=== PATIENT | male | born 1990 | race Caucasian/White ===

== ENCOUNTER 2016-12-01 23:59 | Inpatient (IN) | payer SELFPAY ==
[~2016-12-01] VITALS: Ht 165.1 cm; Wt 52.9 kg
[2016-12-02] VITALS (27 sets, daily range): BP systolic 111–141; BP diastolic 40–84; PULSE 84–122; RESP 9–22; TEMP 98.7; Ht 165.1 cm; Wt 52.9 kg
[2016-12-02] MEDS ORDERED: SOD CHLORIDE 0.9% 1,000 ML IV STA (00:27)
[2016-12-02] MEDS ORDERED: morphine 4 MG/ML VIAL IV STA (00:27)
[2016-12-02] MEDS ORDERED: ONDANSETRON 4 MG INJ IV STA (00:27)
--- NOTE | 2016-12-02 00:42 | ERA ---
ER Documentation Chief Complaint Date/Time DATE: 12/02/16 TIME: 00:39 Chief Complaint c/o abd pain since a.m. (+) n/v x 5. HPI 36-year-old male with a chief complaint of abdominal pain 1 day. Patient's abdominal pain has been worsening and vomiting has followed multiple times in the past few hours. Has felt feverish but has not taken his fever. States that the most pain is in the right lower quadrant. Denies any other symptoms and describes no other associated manifestations. Nursing notes have been reviewed and are consistent with history given. ROS All systems reviewed and are negative except as per history of present illness. PMhx/Soc Medical and Surgical Hx: pt denies Medical Hx, pt denies Surgical Hx Hx Alcohol Use: No Hx Substance Use: No Hx Tobacco Use: No Smoking Status: Never smoker Physical Exam Vitals Vital Signs Date Time Temp Pulse Resp B/P Pulse Ox O2 Delivery O2 Flow Rate FiO2 12/02/16 00:04 98.7 84 18 113/67 98 Physical Exam Const: Will develop 26-year-old male in moderate distress Head: Atraumatic Eyes: Normal Conjunctiva ENT: Normal External Ears, Nose and Mouth. Neck: Full range of motion..~ No meningismus. Resp: Clear to auscultation bilaterally Cardio: Regular rate and rhythm, no murmurs Abd: Tender right lower quadrant at McBurney's point area. Positive Rovsing' s and psoas signs. Negative obturator sign. Negative Woody sign. No right upper quadrant tenderness or epigastric tenderness. Involuntary versus voluntary guarding. Soft and nondistended abdomen. Skin: No petechiae or rashes Back: No midline or flank tenderness Ext: No cyanosis, or edema Neur: Awake and alert Psych: Normal Mood and Affect Result Diagram: 12/02/16 0035 12/02/16 0035 Results 24 hrs Laboratory Tests Test 12/02/16 00:35 White Blood Count 14.010^3/ul Red Blood Count 5.8010^6/ul Hemoglobin 17.4g/dl Hematocrit 48.9% Mean Corpuscular Volume 84.3fl Mean Corpuscular Hemoglobin 30.0pg Mean Corpuscular Hemoglobin Concent 35.6g/dl Red Cell Distribution Width 11.9% Platelet Count 49340^3/UL Mean Platelet Volume 9.2fl Neutrophils % 84.2% Lymphocytes % 9.7% Monocytes % 3.6% Eosinophils % 1.3% Basophils % 0.8% Nucleated Red Blood Cells % 0.0/100WBC Neutrophils # 11.810^3/ul Lymphocytes # 1.410^3/ul Monocytes # 0.510^3/ul Eosinophils # 0.210^3/ul Basophils # 0.110^3/ul Nucleated Red Blood Cells # 0.010^3/ul Prothrombin Time 12.5Sec Prothrombin Time Ratio 1.0 INR International Normalized Ratio 0.93 Activated Partial Thromboplast Time 22.7Sec Urine Color COLLEEN Urine Clarity SLIGHTLY CLOUDY Urine pH 6.0 Urine Specific Telferner 1.030 Urine Ketones TRACEmg/dL Urine Nitrite NEGATIVEmg/dL Urine Bilirubin NEGATIVEmg/dL Urine Urobilinogen 1+mg/dL Urine Leukocyte Esterase NEGATIVELeu/ul Urine Microscopic RBC 7/HPF Urine Microscopic WBC 1/HPF Urine Bacteria FEW/HPF Urine Mucus MANY/HPF Urine Hemoglobin NEGATIVEmg/dL Urine Glucose NEGATIVEmg/dL Urine Total Protein 3+mg/dl Sodium Level 139mmol/L Potassium Level 3.6mmol/L Chloride Level 101mmol/L Carbon Dioxide Level 27mmol/L Anion Gap 15 Blood Urea Nitrogen 10mg/dl Creatinine 0.70mg/dl Glucose Level 147mg/dl Calcium Level 10.1mg/dl Total Bilirubin 0.5mg/dl Direct Bilirubin 0.00mg/dl Indirect Bilirubin 0.5mg/dl Aspartate Amino Transf (AST/SGOT) 24IU/L Alanine Aminotransferase (ALT/SGPT) 35IU/L Alkaline Phosphatase 128IU/L Total Protein 8.1g/dl Albumin 4.7g/dl Globulin 3.40g/dl Albumin/Globulin Ratio 1.38 Lipase 51U/L Current Medications Medications (Trade) Dose Ordered Sig/Cesar Route PRN Reason Start Time Stop Time Status Last Admin Dose Admin Sodium Chloride (NS) 1,000 ml @ 1,000 mls/hr Q1H STAT IV 12/02/16 00:27 12/02/16 01:26 DC 12/02/16 00:40 Morphine Sulfate (morphine) 4 mg ONCE STAT IV 12/02/16 00:27 12/02/16 00:29 DC 12/02/16 00:39 Ondansetron HCl 4 mg 4 mg ONCE STAT IV 12/02/16 00:27 12/02/16 00:30 DC 12/02/16 00:39 Piperacillin Sod/ Tazobactam Sod 100 ml @ 200 mls/hr ONCE ONCE IVPB 12/02/16 02:00 12/02/16 02:29 Sodium Chloride (NS) 1,000 ml @ 1,000 mls/hr Q1H ONCE IV 12/02/16 02:00 12/02/16 02:59 Procedures/MDM Patient was evaluated and worked up for right lower quadrant abdominal discomfort as described in history and physical examination. Patient was given 4 of morphine IV, Zofran 4 mg IV, and 1000 mL of normal saline with adequate relief of symptoms. Workup included the following: CBC, CMP, lipase, urinalysis. Was contacted by the radiologist before the labs came back. Radiologist said that there is an enlarged appendix. I presented the case my attending Dr. Fortune will be taken over the case at this point. Patient is currently stable, And at this time I will suspicion for testicular torsion, hernia, mechanical obstruction, AAA, prostatitis, or epididymitis.I have spoken to the family members who have verbally acknowledged that they understand and agree to his current treatment plan and status. Departure Diagnosis: Primary Impression: Appendicitis Qualified Code: K35.80 - Acute appendicitis, unspecified acute appendicitis type Additional Impression: Abdominal pain Qualified Code: R10.31 - Right lower quadrant abdominal pain Condition: Stable Additional Instructions: Being transferred to the care of KURTIS Lyles PA-C Dec 02, 2016 00:42
[2016-12-02 00:56] LABS: BASOPHIL # 0.1 10^3/ul (0.0-0.1); BASOPHILS % 0.8 % (0.0-2.0); EOSINOPHILS # 0.2 10^3/ul (0.0-0.5); EOSINOPHILS % 1.3 % (0.0-7.0); HEMATOCRIT 48.9 % (42.0-52.0); HEMOGLOBIN 17.4 g/dl (14.0-18.0); LYMPHOCYTES # 1.4 10^3/ul (0.8-2.9); LYMPHOCYTES % 9.7 % (15.0-51.0); MEAN CORPUSCULAR HGB CONC 35.6 g/dl (32.0-37.0); MEAN CORPUSCULAR VOLUME 84.3 fl (82.0-101.0); MEAN PLATELET VOLUME 9.2 fl (7.4-10.4); MONOCYTE # 0.5 10^3/ul (0.3-0.9); MONOCYTES % 3.6 % (0.0-11.0); NEUTROPHIL # 11.8 10^3/ul (1.6-7.5); NEUTROPHILS % 84.2 % (39.0-77.0); PLATELET COUNT 450 10^3/UL (140-415); RED CELL DISTRIBUTION WIDTH 11.9 % (11.5-14.5)
[2016-12-02 01:20] LABS: ALBUMIN 4.7 g/dl (3.3-4.9); ALBUMIN/GLOBULIN RATIO 1.38; BILIRUBIN,INDIRECT 0.5 mg/dl (0-1.1); BILIRUBIN,TOTAL 0.5 mg/dl (0.2-1.3); CALCIUM 10.1 mg/dl (8.4-10.2); CREATININE 0.7 mg/dl (0.61-1.24); POTASSIUM 3.6 mmol/L (3.5-5.1); TOTAL PROTEIN 8.1 g/dl (6.1-8.1)
--- NOTE | 2016-12-02 01:36 | RADRPT ---
PROCEDURE: CT Abdomen and Pelvis without contrast. CLINICAL INDICATION: Pain. TECHNIQUE: CT scan of the abdomen and pelvis was performed on a multidetector slice CT scanner. No intravenous contrast material was utilized. Sagittal and coronal reformatted images were obtained fr om the axial source images. Images were reviewed on a high-resolution PACS workstation. Exam CTDlvol = 4.3 mGy and DLP = 241 Gy-cm. One of the following 3 dose reduction techniques were used: Automate d exposure control; adjustment of the mA and/or kV according to patient size; or use of iterative re construction technique. COMPARISON: None. FINDINGS: There is no obstruction or ileus. The appendix is is enlarged 11 mm with minimal surrounding infilt ration.. There is no evidence for diverticulitis. There is no free fluid. There is no free gas. The liver is overall normal in size. No intrahepatic lesions are identified. The gallbladder is norm al in appearance. There is no definite biliary ductal dilation. Pancreas is normal in appearance. Th e spleen is unremarkable.. There are no adrenal masses. The aorta is normal caliber. Kidneys are normal in appearance without hydronephrosis, mass or calculus. There is no perinephric c ollection. Ureters are of normal caliber and without evidence for an obstructing calculus. The urin soila bladder is contracted.. Limited evaluation of the lung bases is unremarkable. The bones are unremarkable. IMPRESSION: Acute appendicitis. Findings reported to PA. Shahid on 12/02/2016 1:31:16 AM. RPTAT: HMVK .Navi Menendez MD, MD Date Time Electronically viewed and signed by .Navi Menendez MD, MD on 12/02/2016 01:35 .K/
[2016-12-02 01:38] LABS: INR 0.93; PROTIME 12.5 Sec (12.2-14.2)
[2016-12-02 01:39] LABS: PARTIAL THROMBOPLASTIN TIME 22.7 Sec (25.0-35.0)
[2016-12-02 01:41] LABS: ADD UMIC YES; UR ASCORBIC ACID NEGATIVE (NEGATIVE); UR BACTERIA FEW /HPF (NONE SEEN); UR BILIRUBIN (Dip) NEGATIVE (NEGATIVE); UR BLOOD (Dip) NEGATIVE (NEGATIVE); UR CLARITY SLIGHTLY CLOUDY (CLEAR); UR COLOR AMBER (YELLOW); UR GLUCOSE (Dip) NEGATIVE (NEGATIVE); UR KETONES (Dip) TRACE mg/dL (NEGATIVE); UR LEUKOCYTE ESTERASE (Dip) NEGATIVE Leu/ul (NEGATIVE); UR MUCUS MANY /HPF (NONE SEEN); UR NITRITE (Dip) NEGATIVE (NEGATIVE); UR RBC 7 /HPF (0-5); UR TOTAL PROTEIN (Dip) 3+ mg/dl (NEGATIVE); UR UROBILINOGEN (Dip) 1+ mg/dL (NEGATIVE)
[2016-12-02] MEDS ORDERED: PIPER-TAZO 3.375 GM IV (PMX) 100 ML IVPB ONE (02:00)
[2016-12-02] MEDS ORDERED: SOD CHLORIDE 0.9% 1,000 ML IV ONE (02:00)
--- NOTE | 2016-12-02 02:11 | RADRPT ---
PROCEDURE: Chest. CLINICAL INDICATION: Preop evaluation. TECHNIQUE: Single frontal view of the chest was obtained. COMPARISON: None. FINDINGS: The cardiac silhouette is magnified. The aortic arch is unremarkable. There is no focal consolidat ion, vascular congestion or pleural effusion. There is no pneumothorax. IMPRESSION: No evidence for active cardiopulmonary disease. .Braulio Quispe MD, MD Date Time Electronically viewed and signed by .Braulio Quispe MD, on 12/02/2016 02:11 .T/
--- NOTE | 2016-12-02 02:23 | EN ---
Date/Time of Note Date/Time of Note DATE: 12/02/16 TIME: 02:23 ER Progress Note Chief complaint: Abdominal pain History of present illness: The patient is a 23-year-old male, was initially seen in ED2,presenting with acute abdominal pain that began about 4 PM, associated with vomiting of mostly mucus. He denies fever, chills, neck pain, chest pain or dyspnea, dysuria, diarrhea. He smokes and drinks socially Past medical/surgical history: None Const: No acute distress. Head: Atraumatic. Eyes: Normal Conjunctiva. ENT: Normal External Ears, Nose and Mouth. Neck: Full range of motion. No meningismus. Resp: Clear to auscultation bilaterally. Cardio: Regular rate and rhythm. Abd: Soft, non distended, normal bowel sounds, Localized right lower quadrant tenderness, no rigidity, rebound, CVA tenderness Skin: No petechiae or rashes. Back: No midline or flank tenderness. Ext: No cyanosis, or edema. Neur: Awake and alert. No focal deficit Psych: Normal Mood and Affect. EKG: Read by emergency physician Rate/Rhythm: Normal Sinus Rhythm 80 beats/min QRS, ST, T-waves: No ST elevation, no T inversion, Incomplete right bundle branch block, nonspecific T abnormality Impression: Abnormal EKG [place] [id number] Rad[facility] Main Line: [phone] DIAGNOSTIC IMAGING REPORT Patient: RUTHANN CHIRINOS : 1990 Age: 26 Sex: M MR #: [id number] DOS: 12/02/16 0140 Ordering MD: NAVI DUGGAN MD Location: E/R Room/Bed: PROCEDURE: Chest. CLINICAL INDICATION: Preop evaluation. TECHNIQUE: Single frontal view of the chest was obtained. COMPARISON: None. FINDINGS: The cardiac silhouette is magnified. The aortic arch is unremarkable. There is no focal consolidation, vascular congestion or pleural effusion. There is no pneumothorax. IMPRESSION: No evidence for active cardiopulmonary disease. .Braulio Quispe MD, Date Time Electronically viewed and signed by .Braulio Quispe MD, on 12/02/2016 02:11 .T/ CC: NAVI DUGGAN MD [place] [id number] Radiology Main Line: [phone] DIAGNOSTIC IMAGING REPORT Patient: RUTHANN CHIRINOS : 1990 Age: 26 Sex: M MR #: [id number] DOS: 12/02/16 0027 Ordering MD: NAVI SHAHID PA-C Location: [facility]TE Room/Bed: PROCEDURE: CT Abdomen and Pelvis without contrast. CLINICAL INDICATION: Pain. TECHNIQUE: CT scan of the abdomen and pelvis was performed on a multidetector slice CT scanner. No intravenous contrast material was utilized. Sagittal and coronal reformatted images were obtained from the axial source images. Images were reviewed on a high-resolution PACS workstation. Exam CTDlvol = 4.3 mGy and DLP = 241 Gy-cm. One of the following 3 dose reduction techniques were used: Automated exposure control; adjustment of the mA and/or kV according to patient size; or use of iterative reconstruction technique. COMPARISON: None. FINDINGS: There is no obstruction or ileus. The appendix is is enlarged 11 mm with minimal surrounding infiltration.. There is no evidence for diverticulitis. There is no free fluid. There is no free gas. The liver is overall normal in size. No intrahepatic lesions are identified. The gallbladder is normal in appearance. There is no definite biliary ductal dilation. Pancreas is normal in appearance. The spleen is unremarkable.. There are no adrenal masses. The aorta is normal caliber. Kidneys are normal in appearance without hydronephrosis, mass or calculus. There is no perinephric collection. Ureters are of normal caliber and without evidence for an obstructing calculus. The urinary bladder is contracted.. Limited evaluation of the lung bases is unremarkable. The bones are unremarkable. IMPRESSION: Acute appendicitis. Findings reported to PA. Shahid on 12/02/2016 1:31:16 AM. RPTAT: HMVK .Navi Menendez MD, Date Time Electronically viewed and signed by .Navi Menendez MD, on 12/02/2016 01:35 .K/ CC: NAVI SHAHID PA-C MEDICAL MAKING DECISION: The patient is a 26-year-old male, presenting with acute appendicitis. He was treated with 2 L normal saline for clinical dehydration, morphine 4 mg IV for pain, Zofran 4 mm for nausea, Zosyn IV for acute appendicitis with good response. The differential diagnoses considered include but are not limited to cholelithiasis, cholecystitis, cystitis, pancreatitis, hepatitis, gastritis, peptic ulcer disease, gastric ulcer, appendicitis, diverticulitis, cholangitis, choledocholithiasis, partial small bowel obstruction. Consultation: I discussed the patient with the on-call general surgeon Dr. Gaffney at 1:50 AM, who was made aware of the lab, the treatment, the patient condition. He accepted the consult Diagnostic impression: Acute appendicitis Disposition: I discussed the findings with the patient. I discussed the patient with the on-call hospitalist Dr. Alfredo at 2 AM who was made aware of the lab, the treatment, the patient condition and my discussion with the general surgeon. The patient is admitted to NAVI Benson MD Dec 02, 2016 02:23
[2016-12-02] MEDS ORDERED: SOD CHLORIDE 0.9% 1,000 ML IV SCH (03:27)
--- NOTE | 2016-12-02 03:27 | HP ---
Date/Time of Note Date/Time of Note DATE: 12/02/16 TIME: 03:24 Assessment/Plan VTE Prophylaxis VTE Prophylaxis Intervention: SCD's Lines/Catheters IV [facility] Saline Lock Assessment/Plan Chief Complaint/Hosp Course This is a 26 year old male being admitted to the [facility] floor for: #1 acute appendicitis: keep npo, iv fluid hydration with normal saline, zosyn iv , iv morphine for pain, zofran for nausea. 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 #2 Dvt and gi prophylaxis: scds, famotidine Further treatment strategy will be implemented as per the clinical course Problems: HPI/ROS Admit Date/Time Admit Date/Time Hx of Present Illness cc: abdominal pain x 1 day This is a 36-year-old male with a chief complaint of abdominal pain 1 day. Patient's abdominal pain has been worsening and vomiting has followed multiple times in the past few hours. Has felt feverish but has not taken his fever. States that the most pain is in the right lower quadrant. Denies any other symptoms and describes no other associated manifestations. Nursing notes have been reviewed and are consistent with history given. allergies: nkda medsL none ROS Const: As per HPI Eyes : No pain discharge or redness or change in visual acuity ENT: No pain, sore throat, congestion, congestion, dysphagia or discharge Respiratory: No shortness of breath, cough, sputum, wheezing, or pleuritic pain Cardiovascular: No chest pain, palpitation, PND, or edema GI : as per HPI Genitourinary: No dysuria, hematuria, flank pain , discharge or CVA tenderness Musculoskeletal: No joint pain, back pain, neck pain, restricted range of motion in neck or joints Skin: No rash, bruising or hives Neuro: No headache, dizziness, syncope, seizure, focal weakness Endocrine: No polyuria, polydipsia, temperature intolerance Psych: No hallucination, depression, anxiety or suicidal ideation PMH/Family/Social Past Medical History Medical History: no pertinent history Past Surgical History Past Surgical Hx: no surgical history Family History Significant Family History: no pertinent family hx Social History Alcohol Use: occasionally Smoking Status: Never smoker Drug Use: none Exam/Review of Systems Vital Signs Vitals Vital Signs Date Time Temp Pulse Resp B/P Pulse Ox O2 Delivery O2 Flow Rate FiO2 12/02/16 02:17 85 22 133/84 98 Room Air 12/02/16 00:04 98.7 Exam Exam General: Patient is well-developed well-nourished The patient is alert oriented -3 lying comfortably in bed. HEENT: Atraumatic, normocephalic. The pupils are equal, round and reactive. Extraocular motor are intact Neck: Supple with full range of motion. No rigidity or meningismus Chest: Nontender Lungs: Clear to auscultation bilaterally no crackles rales or wheezing Heart: Normal S1-S2, Regular rhythm and rate. No murmur, S3, or S4 Abdomen: Right lower quadrant tenderness to palpation, nondistended, normal bowel sounds Extremities: Normal to inspection, no edema no cyanosis Neurologic: Normal mental status, speech normal, cranial nerves II through XII are intact, motor and sensory are intact, no focal weakness Additional Comments PROCEDURE: CT Abdomen and Pelvis without contrast. CLINICAL INDICATION: Pain. TECHNIQUE: CT scan of the abdomen and pelvis was performed on a multidetector slice CT scanner. No intravenous contrast material was utilized. Sagittal and coronal reformatted images were obtained from the axial source images. Images were reviewed on a high-resolution PACS workstation. Exam CTDlvol = 4.3 mGy and DLP = 241 Gy-cm. One of the following 3 dose reduction techniques were used: Automated exposure control; adjustment of the mA and/or kV according to patient size; or use of iterative reconstruction technique. COMPARISON: None. FINDINGS: There is no obstruction or ileus. The appendix is is enlarged 11 mm with minimal surrounding infiltration.. There is no evidence for diverticulitis. There is no free fluid. There is no free gas. The liver is overall normal in size. No intrahepatic lesions are identified. The gallbladder is normal in appearance. There is no definite biliary ductal dilation. Pancreas is normal in appearance. The spleen is unremarkable.. There are no adrenal masses. The aorta is normal caliber. Kidneys are normal in appearance without hydronephrosis, mass or calculus. There is no perinephric collection. Ureters are of normal caliber and without evidence for an obstructing calculus. The urinary bladder is contracted.. Limited evaluation of the lung bases is unremarkable. The bones are unremarkable. IMPRESSION: Acute appendicitis. Findings reported to PA. Shahid on 12/02/2016 1:31:16 AM. RPTAT: HMVK .Kurtis Menendez MD, Date Time Electronically viewed and signed by .Kurtis Menendez MD, MD on 12/02/2016 01:35 .K/ CC: KURTIS SHAHID PA-C PROCEDURE: Chest. CLINICAL INDICATION: Preop evaluation. TECHNIQUE: Single frontal view of the chest was obtained. COMPARISON: None. FINDINGS: The cardiac silhouette is magnified. The aortic arch is unremarkable. There is no focal consolidation, vascular congestion or pleural effusion. There is no pneumothorax. IMPRESSION: No evidence for active cardiopulmonary disease. .Braulio Quispe MD, MD Date Time Electronically viewed and signed by .Braulio Quispe MD, on 12/02/2016 02:11 .T/ CC: KURTIS DUGGAN MD Labs Result Diagram: 12/02/16 0035 12/02/16 0035 TYRELL CORONADO Dec 02, 2016 03:27
[2016-12-02] MEDS ORDERED: ACETAMINOPHEN 325 MG TAB PO PRN (03:30)
[2016-12-02] MEDS ORDERED: NACL 0.9% 3 ML SYG IV SCH (03:30)
[2016-12-02] MEDS ORDERED: morphine 2 MG INJ IV PRN (03:30)
[2016-12-02] MEDS: FAMOTIDINE 20 MG INJ IV SCH ×2 (04:08→13:00)
[2016-12-02] MEDS: ONDANSETRON 4 MG INJ IV PRN ×2 (06:30→19:56)
[2016-12-02] MEDS: PIPER-TAZO 3.375 GM IV (PMX) 100 ML IVPB SCH ×2 (07:57→14:00)
[2016-12-02] MEDS ORDERED: PROPOFOL 20 ML ONE (12:36)
[2016-12-02] MEDS ORDERED: LIDOCAINE 2% (SDV) 5 ML INJ ONE (12:36)
[2016-12-02] MEDS ORDERED: ROCURONIUM 50 MG INJ ONE (12:36)
[2016-12-02] MEDS ORDERED: ONDANSETRON 4 MG INJ ONE (12:37)
[2016-12-02] MEDS ORDERED: FENTAnyl 50 MCG/ML VIAL ONE (12:37)
[2016-12-02] MEDS ORDERED: MIDAZOLAM 1 MG/ML 2 ML INJ ONE (12:37)
[2016-12-02] MEDS ORDERED: DEXAMETHASONE 4 MG/ML 1 ML INJ ONE (12:37)
--- NOTE | 2016-12-02 13:05 | CONS ---
Date/Time of Note Date/Time of Note DATE: 12/02/16 TIME: 13:05 Assessment/Plan Assessment/Plan Additional Assessment/Plan [facility] IN[facility]IENT CONSULTATION NOTE DATE OF SERVICE: 12/02/2016 PLACE OF SERVICE: [facility], sixth floor ASSESSMENT AND PLAN: A very-pleasant 26-year-old gentleman who is otherwise seemingly healthy, presenting with acute appendicitis. I recommended and consented the patient and family for laparoscopic, possible open appendectomy. With above assessment, I've recommended the followin. To the operating room for above Thank you very much for having me involved in the care of this very pleasant patient and I'm certain his wonderful family. If you have any questions, please feel free to contact me at [phone]. Nature of presenting problem: Moderate severity Please note that, given the limited number of diagnoses or management options, the moderate amount and/or complexity of data needed to be reviewed, and moderate risk of complications and/or morbidity or mortality, this qualifies as moderate complexity type of decision-making. Disclaimers: 1. Inadvertent spelling and grammatical errors are likely due to electronic health record (EHR)/dictation software use and do not reflect on the quality of delivered patient care. 2. The electronic timestamp recorded on this note does not necessarily reflect the actual date and time of the visit. 3. Portions of this note are created through electronic templates and computer algorithms that may bring in information either from the system or from other physicians and providers that are outside of my control and may not be always accurate. In general (but not always) this happens either in the beginning or at the end of the note. My portions of the gathered data are generally dictated in 1 continuous block of text and entered into one field in the EHR. 4. There may be other unanticipated errors in the note that are outside of my control. I can only attest to the portions of the note that I have created. Updated clinical summary: Very pleasant and otherwise healthy 26-year-old gentleman, presenting with acute appendicitis to [facility] through the emergency department on 12/02/2016. Comorbidities: None CONSULTATION REQUESTED BY: Asia Alfredo MD HISTORY OF PRESENT ILLNESS: Patient is a very pleasant and otherwise healthy 26- year-old gentleman, presenting with acute appendicitis to [facility] through the emergency department on 12/02/2016. Patient reported having pain since yesterday. He started having nausea but no sig vomiting. [place] like he was "about to ". No change in bowel or bladder habits including no diarrhea or constipation or blood in the stool. He describes the pain as right lower quadrant without radiation. Severe at its worse. No alleviating or exacerbating factors. No prior operations in the past. No prior similar symptoms in the past. No other major complaints. Pain improved with pain medications. Workup was positive for white blood cell count elevation (14) as well as CT findings. ALLERGIES: NKDA MEDICATIONS Documented in the electronic records and reviewed by me. Please see the electronic records for details, as well as details for inpatient medications which were also reviewed by me. SOCIAL HISTORY: The patient lives with family.-Tob;-ETOH;-IVDU. 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 FAMILY HISTORY: There are no significant medical, surgical or oncologic issues in the family as reported by the patient or reflected in the chart. REVIEW OF SYSTEMS: Other than mentioned above, there were no other pertinent positives or pertinent negatives in an otherwise complete 14 point review of systems. PHYSICAL EXAMINATION GENERAL: The patient appears to be a very pleasant gentleman of descent lying in bed, appearing stated age, and otherwise in no acute distress. BMI: 19.4 VITAL SIGNS: AVSS (please also see auto important data if available as well as the electronic records) HEENT: Normocephalic and atraumatic. Extraocular muscles and hearing are grossly intact bilaterally and symmetrically. Sclerae are nonicteric. Oral cavity is clear; oral mucosa appear to be pink and moist. Dentition: fair. NECK: Supple. There is no lymphadenopathy or JVD. There is no submental, submandibular or supraclavicular lymphadenopathy. CHEST: Rises symmetrically with each breath; patient is breathing comfortably. There are no audible wheezes, rales or rhonchi on the gross exam. HEART: Pulse is regular and palpable on the right wrist. Capillary refill is normal. Carotid pulses are palpable bilaterally and symmetrically in the neck. EXTREMITIES: Lower extremities contain no pitting edema around the ankles bilaterally and symmetrically. ABDOMEN: Abdomen is soft, mild to moderately tender to palpation in the RLQ and nondistended. No evidence of ascites, organomegaly, caput medusae, engorged subcutaneous veins, or other abnormalities. There are no peritoneal signs or guarding. SKIN: Appears to be pink and feels warm to touch. NEUROLOGIC: Awake, alert, and follows commands appropriately. LABORATORY DATA: See below IMAGING: See electronic chart. Please note that I've personally reviewed all pertinent available images and I agree in general with their overall reported findings. Consultation Date/Type/Reason Admit Date/Time Past Medical History Medical History: no pertinent history Past Surgical History Past Surgical Hx: no surgical history Social History Alcohol Use: occasionally Smoking Status: Light tobacco smoker Drug Use: none Exam/Review of Systems Vital Signs Vitals Vital Signs Date Time Temp Pulse Resp B/P Pulse Ox O2 Delivery O2 Flow Rate FiO2 12/02/16 12:23 98.7 12/02/16 07:59 82 18 126/74 98 12/02/16 06:20 Room Air Results Result Diagram: 12/02/16 0035 12/02/16 0035 Results 24 hrs Laboratory Tests Test 12/02/16 00:35 White Blood Count 14.0 H Red Blood Count 5.80 Hemoglobin 17.4 Hematocrit 48.9 Mean Corpuscular Volume 84.3 Mean Corpuscular Hemoglobin 30.0 Mean Corpuscular Hemoglobin Concent 35.6 Red Cell Distribution Width 11.9 Platelet Count 450 H Mean Platelet Volume 9.2 Neutrophils % 84.2 H Lymphocytes % 9.7 L Monocytes % 3.6 Eosinophils % 1.3 Basophils % 0.8 Nucleated Red Blood Cells % 0.0 Neutrophils # 11.8 H Lymphocytes # 1.4 Monocytes # 0.5 Eosinophils # 0.2 Basophils # 0.1 Nucleated Red Blood Cells # 0.0 Prothrombin Time 12.5 Prothrombin Time Ratio 1.0 INR International Normalized Ratio 0.93 Activated Partial Thromboplast Time 22.7 L Urine Color COLLEEN Urine Clarity SLIGHTLY CLOUDY A Urine pH 6.0 Urine Specific Rheems 1.030 Urine Ketones TRACE A Urine Nitrite NEGATIVE Urine Bilirubin NEGATIVE Urine Urobilinogen 1+ H Urine Leukocyte Esterase NEGATIVE Urine Microscopic RBC 7 H Urine Microscopic WBC 1 Urine Bacteria FEW A Urine Mucus MANY A Urine Hemoglobin NEGATIVE Urine Glucose NEGATIVE Urine Total Protein 3+ H Sodium Level 139 Potassium Level 3.6 Chloride Level 101 Carbon Dioxide Level 27 Anion Gap 15 Blood Urea Nitrogen 10 Creatinine 0.70 Glucose Level 147 Calcium Level 10.1 Total Bilirubin 0.5 Direct Bilirubin 0.00 Indirect Bilirubin 0.5 Aspartate Amino Transf (AST/SGOT) 24 Alanine Aminotransferase (ALT/SGPT) 35 Alkaline Phosphatase 128 H Total Protein 8.1 Albumin 4.7 Globulin 3.40 H Albumin/Globulin Ratio 1.38 Lipase 51 Medications Medications Current Medications Piperacillin Sod/ Tazobactam Sod 100 ml @ 200 mls/hr Q8 IVPB Last administered on 12/02/16 07:57; Admin Dose 200 MLS/HR; Start 12/02/16 at 07:30 Sodium Chloride (NS) 1,000 ml @ 80 mls/hr [id number] IV Last administered on 12/02 04:08; Admin Dose 80 MLS/HR; Start 12/02/16 at 03:27 Ondansetron HCl (Zofran Inj) 4 mg Q6H PRN IV NAUSEA AND/OR VOMITING Last administered on 12/02/16 06:30; Admin Dose 4 MG; Start 12/02/16 at 03:30 Acetaminophen (Tylenol Tab) 650 mg Q6H PRN PO PAIN LEVEL 1-3 OR FEVER; Start at 03:30 Morphine Sulfate (morphine) 2 mg Q4H PRN IV SEVERE PAIN LEVEL 7-10 Last administered on 12/02/16 06:30; Admin Dose 2 MG; Start 12/02/16 at 03:30 Famotidine (Pepcid Iv) 20 mg Q12 IV Last administered on 12/02/16 04:08; Admin Dose 20 MG; Start 12/02/16 at 03:32 Influenza Virus Vaccine (Fluzone) 0.5 ml ONCE ONCE IM* ; Start 12/05/16 at 09:00 ; Stop 12/05/16 at 09:01 MATTY MEJIAS M.D. Dec 02, 2016 13:05
[2016-12-02] MEDS ORDERED: BUPIVACAINE 0.5%/EPI (SDV) 10 ML INJ ONE (13:28)
[2016-12-02] MEDS ORDERED: ONDANSETRON 4 MG INJ IV PRN (13:30)
[2016-12-02] MEDS ORDERED: DIPHENHYDRAMINE 50 MG INJ IV PRN (13:30)
[2016-12-02] MEDS ORDERED: MEPERIDINE 25 MG INJ IV PRN (13:30)
[2016-12-02] MEDS ORDERED: METOCLOPRAMIDE 10 MG INJ IV PRN (13:30)
[2016-12-02] MEDS ORDERED: HYDROmorphONE (0.2 MG/ML) 10ML SYG IV PRN ×3 (13:30)
[2016-12-02] MEDS ORDERED: SUGAMMADEX SODIUM 200 MG/2 ML VIAL IV ONE (14:07)
[2016-12-02] MEDS ORDERED: GLYCOPYRROLATE 0.4 MG INJ ONE (14:31)
[2016-12-02] MEDS ORDERED: NA PHOSPHATE/BIPHOS 133 ML ENEMA PR PRN (15:00)
[2016-12-02] MEDS ORDERED: DOCUSATE SODIUM 100 MG CAP PO PRN (15:00)
[2016-12-02] MEDS ORDERED: HYDROmorphONE 1 MG/ML SYG IV PRN (15:00)
[2016-12-02] MEDS ORDERED: HYDROCODONE/APAP (5/325) TAB PO PRN ×2 (15:00)
[2016-12-02] MEDS ORDERED: BISACODYL 10 MG SUPP PR PRN (15:00)
--- NOTE | 2016-12-02 15:01 | OPR ---
Date/Time of Note Date/Time of Note DATE: 12/02/16 TIME: 14:55 Operative Report Surgeon see signature line Operative\Procedure Findings [facility]IENT [facility] PLACE OF SERVICE: [facility] DATE OF SURGERY: 12/02/2016 PREOPERATIVE DIAGNOSIS: 1. Acute appendicitis POSTOPERATIVE DIAGNOSIS: 1. Acute appendicitis OPERATION: 1. Laparoscopic appendectomy SURGEON: Matty Mejias M.D. FLASH WELDER: None ANESTHESIA: General endotracheal tube anesthesia ANESTHESIOLOGIST: Brijesh Pierce CRNA BRIEF SUMMARY: An otherwise uncomplicated laparoscopic appendectomy was performed with findings of non-perforated appendicitis. Updated clinical summary: Very pleasant and otherwise healthy 26-year-old gentleman, presenting with acute appendicitis to [facility] through the emergency department on 12/02/2016. Comorbidities: 1. None BRIEF HISTORY: The patient is a very pleasant 26-year-old gentleman who presented with signs and symptoms consistent with acute appendicitis. I met with the patient (no family present during any of my discussions with the patient) and counseled him regarding the possible options of treatment, and I strongly suggested a laparoscopic, possible open appendectomy. We reviewed the operation in detail as well as the risks, benefits, alternatives, and expected outcomes of this operation. After careful consideration of all the risks, benefits, and alternatives, the patient appeared to understand those risks and wished to proceed with surgery. For a detailed report of my consultation with patient, please refer to my separate consultation note. STATEMENT OF THE INFORMED CONSENT: The patient appeared to understand the risks of the operation to include, but not be limited to risk of postoperative pain and scar tissue, possible infection or bleeding requiring other interventions such as opening the wound, placement of drainage catheters, or other operative interventions; possible injury to surrounding to structures including bowel, bladder, bile duct, or blood vessels, or solid organs such as liver, kidney, or pancreas requiring other interventions or procedures; possible leakage of bowel from anastomotic sites or suture lines causing significant increase in morbidity and mortality and requiring multiple interventions including but not limited to, placement of drainage catheters, imaging studies, as well as operative interventions; possible other source of sepsis such as urinary tract infections or pneumonias, or other sources of potentially life threatening problems such as deep venous thrombus formation causing pulmonary embolism, myocardial arrhythmias and infarctions, and even . After careful consideration of all their options, the patient appeared to understand and wished to proceed with surgery. DESCRIPTION OF PROCEDURE: After obtaining informed consent, the patient was brought into the operating room and was placed in a normal supine position, where successful general endotracheal tube anesthesia was performed. Intravenous access was already in place and intravenous antimicrobials had been appropriately chosen and dosed prior to the operation. The patient's abdominal skin was prepped and draped from the nipple line down to the level of the upper thighs in the usual sterile fashion. We then called a surgical time-out where the patient's identification, date of , nature of the operation, allergies , presence of intravenous antimicrobials, presence of needed equipment, and any other concerns were reviewed and agreed upon by all members of the operating room team. We then started the operation by placing a 5 mm skin incision in the left lower quadrant and then introduced a 5 mm [employer] trocar into the peritoneal space, visualizing all the layers of the abdominal wall as we entered. Note that there was no indication of any injury to underlying structures with our entry into the peritoneal space. We insufflated the abdominal cavity to a maximum pressure of 15 mmHg and again inspected the area of insertion and ensured no obvious injury to underlying structures prior to inspecting the abdominal cavity and showing no obvious pus, bowel contents, or other abnormal features. We could not see the appendix very well. We, therefore, injected the future sites of our other trocars with 0.25% Marcaine with epinephrine and placed a 5 mm [employer] trocar into the midline suprapubic area, taking care not to injure the bladder. We also placed a 12 mm trocar in the umbilical midline area, all under direct visualization. With our instruments in place, we had excellent visualization and access to the right lower quadrant. We then identified the appendix, which was inflamed but had a normal base coming out of the cecum. Entire appendix was inflamed, but not perforated. I then went ahead and used blunt dissection to circumferentially isolate the base of the appendix and then transected this using one firing of the white load of the Endo-SARAI stapler. We also repeated the firing on the mesentery of the appendix and completely disconnected the organ from the colon, delivered this out through the 12 mm trocar site inside of an EndoCatch bag without having to enlarge the fascial defect as well as without contaminating the wound. The specimen was sent to Pathology for further analysis. We then ensured adequate hemostasis and bile stasis, removed all our equipment including the pneumoperitoneum from the abdominal cavity prior to closing the infraumbilical fascia with 1 [id number] 0 Vicryl suture on a UR-6 needle, washing the wounds with copious amounts of normal saline, injecting the initial insertion point of the trocar with 0.25% Marcaine with epinephrine, and then closing the skin using interrupted 4-0 Monocryl sutures. Light dressing was then applied. At the end of the operation, both the sponge count and needle count were reportedly correct x2. The patient tolerated the procedure without any reported complications. ESTIMATED BLOOD LOSS: Less than 10 mL. BLOOD OR BLOOD PRODUCT TRANSFUSIONS: None to my knowledge. SPECIMENS: 1. Appendix COMPLICATIONS: None. DISPOSITION: Recovery area. Disclaimers: 1. Inadvertent spelling and grammatical errors are likely due to electronic health record (EHR)/dictation software use and do not reflect on the quality of delivered patient care. 2. The electronic timestamp recorded on this note does not necessarily reflect the actual date and time of the visit. 3. Portions of this note are created through electronic templates and computer algorithms that may bring in information either from the system or from other physicians and providers that are outside of my control and may not be always accurate. In general (but not always) this happens either in the beginning or at the end of the note. My portions of the gathered data are generally dictated in 1 continuous block of text and entered into one field in the EHR. 4. There may be other unanticipated errors in the note that are outside of my control. I can only attest to the portions of the note that I have created. MATTY MEJIAS M.D. Dec 02, 2016 15:01
--- NOTE | 2016-12-02 16:33 | PDOCDIS ---
Discharge Instructions DIAGNOSIS Discharge Diagnosis Acute appendicitis. Status post laparoscopic appendectomy. CONDITION Patient Condition: Stable HOME CARE INSTRUCTIONS: Diet Instructions: Regular FOLLOW UP/APPOINTMENTS Follow-up Plan Wander Sorenson MD Specialty: General Surgery Office Address [address] [place], [place] [address] [address] [place], [place] [id number] Office OTHER ORDERS: Other Orders: 1. Regular diet as tolerated. 2. Keep incisions clean and dry. May shower. Avoid tub baths and swimming for 2 weeks. Use mild soap and pat dry the incisions. 3. Take medications as needed for pain. 4. Call the surgeon or go to the nearest ER if you have severe abdominal pain despite pain medications. 5. Call the surgeon or go to the nearest ER if you notice any bleeding or secretions coming out of the incision sites. Also call the surgeon if you notice any blood in stool, if you have persistent fevers, or any other unusual signs or symptoms. 6. Follow-up with the surgeon Dr. Sorenson in 7 days for incision check. 7. Avoid heavy lifting [more than 25 pounds] for 8 weeks. SCHOOL/WORK RELEASE May return to School/Work on: Dec 05, 2016 May return to School/Work with: With Restrictions (No heavy lifting (greater than 25 lbs) for 8 weeks (until 02/03/2017)) JACKIE DAUGHERTY NP Dec 02, 2016 16:33
[2016-12-02] MEDS ORDERED: HYDR-3498 PO (16:37)
[2016-12-02] MEDS ORDERED: DOCU-144 PO (16:37)
--- NOTE | 2016-12-02 18:24 | DS ---
DATE OF ADMISSION: 12/02/2016 DATE OF DISCHARGE: 12/02/2016 FINAL DIAGNOSES: Acute appendicitis. Status post laparoscopic appendectomy. CHEMICAL EQUIPMENT REPAIRER: Wander Sorenson MD, general surgery. HOSPITAL COURSE: This is a 26-year-old male with no significant past medical history, who came to the Emergency room with chief complaint of abdominal pain of 1 day duration. The patient also verbalized multiple episodes of vomiting. The patient also verbalized subjective fevers. In the Emergency room, the patient was noticed to have leukocytosis. The patient underwent a CT scan of the abdomen and pelvis that showed acute appendicitis. The patient was admitted to inpatient medical surgical floor. The patient was kept NPO. He was started on empiric antibiotics. The patient was started with IV fluids. General surgery consult was obtained. The patient underwent a laparoscopic appendectomy on 12/02/2016. Postoperatively, the patient was started on clear liquid diet and the patient's diet was advanced as tolerated to a regular consistency diet without any significant gastrointestinal symptoms. The patient was encouraged on frequent ambulation and frequent use of incentive spirometry. The patient was cleared by general surgery to be discharged home. The patient has no other significant comorbidities. DISCHARGE DISPOSITION AND PLAN: The patient will be discharged home today. The patient was instructed to take a regular diet as tolerated. He was instructed to keep the incisions clean and dry. He was instructed that he may shower, but to avoid hot baths and swimming for 2 weeks and to use mild soap and pat dry the incisions. The patient was instructed to take medications as needed for pain. The patient was instructed to call the surgeon or go to the nearest emergency room if he has severe abdominal pain despite pain medications. The patient was instructed to call the surgeon or go to the nearest emergency room if he notices any bleeding or secretions coming out of the incision sites. He was also instructed to call the surgeon if he notices any blood in stool, or if he has any persistent fevers or any other unusual signs/symptoms. The patient was instructed to follow up with Dr. Sorenson in 7 days for an incision check. He was instructed to avoid heavy lifting more than 25 pounds for 8 weeks. The patient verbalized understanding of his discharge instructions. DISCHARGE CONDITION: Stable. DISCHARGE MEDICATIONS: 1. Colace 100 mg orally twice daily 2. [place] 5/325, 1 tablet orally every 4 h as needed for pain (#20 tablets). DIAGNOSTIC DATA: 1. Chest x-ray. No acute cardiopulmonary findings. 2. CT scan of the abdomen and pelvis. Appendicitis. Laparoscopic appendectomy. 3. CBC: WBC is 14.2, hemoglobin 17.4, hematocrit 48.9, platelet count 450,000. 4. Latest BMP: Sodium 139, potassium 3.6, chloride 101, carbon dioxide 27, anion gap 15, BUN 10, creatinine 0.7. Serum glucose 147, calcium 10.1. AST 24, ALT 35, and alkaline phosphatase 128. At this time I would like to thank Dr. Sorenson, for seeing the patient, doing the necessary procedures, and providing clinical recommendations. The case and management of this patient was fully discussed with Dr. Leena Kenney. Approximately 35 minutes was spent on coordinating the discharge on this patient. DICTATED BY: Giovany Cole NP. Dictated By: MD OSIRIS Yanes/[email or web address] /Document#: [id number]
[2016-12-02] MEDS: HYDROmorphONE 1 MG/ML SYG IV PRN (19:56)
[2016-12-02] MEDS ORDERED: CEPASTAT LOZENGE MT PRN (20:00)
[2016-12-03 04:01] VITALS: BP 119/60; PULSE 80; RESP 18
[2016-12-03 05:37] LABS: BASOPHILS % 0.1 % (0.0-2.0); EOSINOPHILS % 0.1 % (0.0-7.0); HEMATOCRIT 42.7 % (42.0-52.0); HEMOGLOBIN 14.6 g/dl (14.0-18.0); LYMPHOCYTES # 1.6 10^3/ul (0.8-2.9); LYMPHOCYTES % 11.3 % (15.0-51.0); MEAN CORPUSCULAR HEMOGLOBIN 29.3 pg (29.0-33.0); MEAN CORPUSCULAR HGB CONC 34.2 g/dl (32.0-37.0); MEAN CORPUSCULAR VOLUME 85.7 fl (82.0-101.0); MEAN PLATELET VOLUME 9.7 fl (7.4-10.4); MONOCYTE # 1.1 10^3/ul (0.3-0.9); NEUTROPHIL # 11.4 10^3/ul (1.6-7.5); NEUTROPHILS % 79.9 % (39.0-77.0); PLATELET COUNT 387 10^3/UL (140-415); RED BLOOD COUNT 4.98 10^6/ul (4.70-6.10); RED CELL DISTRIBUTION WIDTH 12.2 % (11.5-14.5); WHITE BLOOD COUNT 14.2 10^3/ul (4.8-10.8)
[2016-12-03 07:48] LABS: ALBUMIN 3.6 g/dl (3.3-4.9); ALBUMIN/GLOBULIN RATIO 1.28; BILIRUBIN,INDIRECT 0.5 mg/dl (0-1.1); BILIRUBIN,TOTAL 0.5 mg/dl (0.2-1.3); CALCIUM 9.5 mg/dl (8.4-10.2); CHOL/HDL RATIO 3.2 RATIO; CREATININE 0.66 mg/dl (0.61-1.24); POTASSIUM 3.8 mmol/L (3.5-5.1); TOTAL PROTEIN 6.4 g/dl (6.1-8.1)
[2016-12-03 08:14] LABS: THYROID STIMULATING HORMONE 1.24 MIU/L (0.465-4.680)
[2016-12-03 08:16] VITALS: BP 132/80; RESP 20
[2016-12-03] MEDS: HYDROmorphONE 1 MG/ML SYG IV PRN (08:23)
[2016-12-03] MEDS ORDERED: ENOXAPARIN 40 MG/0.4 ML SYG SC SCH (09:00)
--- NOTE | 2016-12-03 10:11 | DS ---
Date/Time of Note Date/Time of Note DATE: 12/03/16 TIME: 10:10 Discharge Summary Admission/Discharge Info Admit Date/Time Dec 02, 2016 at 01:56 Discharge Date/Time Discharge Diagnosis Acute appendicitis. Status post laparoscopic appendectomy. Patient Condition: Stable Consults Delta Viramontes MD, General Surgery. Procedures Laparoscopic appendectomy. Hx of Present Illness CC: Abdominal pain x 1 day This is a 36-year-old male with a chief complaint of abdominal pain 1 day. The patient's abdominal pain has been worsening and vomiting has followed multiple times in the past few hours. Has felt feverish but has not taken his fever. Stated that the most pain is in the right lower quadrant. Denied any other symptoms and described no other associated manifestations. In the Emergency room , the patient was noticed to have leukocytosis. The patient underwent a CT scan of the abdomen and pelvis that showed acute appendicitis. Allergies: [facility] Hospital Course The patient was admitted to inpatient medical surgical floor. The patient was kept NPO. He was started on empiric antibiotics. The patient was started with IV fluids. General surgery consult was obtained. The patient underwent a laparoscopic appendectomy on 12/02/2016. Postoperatively, the patient was started on a clear liquid diet and the patient's diet was advanced as tolerated to a regular consistency diet without any significant gastrointestinal symptoms. The patient was encouraged on frequent ambulation and frequent use of incentive spirometry. The patient was cleared by general surgery to be discharged home. The patient has no other significant comorbidities. DISCHARGE DISPOSITION AND PLAN: The patient will be discharged home today. The patient was instructed to take a regular diet as tolerated. He was instructed to keep the incisions clean and dry. He was instructed that he may shower, but to avoid tub baths and swimming for 2 weeks and to use mild soap and pat dry the incisions. The patient was instructed to take medications as needed for pain. The patient was instructed to call the surgeon or go to the nearest emergency room if he has severe abdominal pain despite pain medications. The patient was instructed to call the surgeon or go to the nearest emergency room if he notices any bleeding or secretions coming out of the incision sites. He was also instructed to call the surgeon if he notices any blood in stool, or if he has any persistent fevers or any other unusual signs/symptoms. The patient was instructed to follow up with Dr. Sorenson in 7 days for an incision check. He was instructed to avoid heavy lifting more than 25 pounds for 8 weeks. The patient verbalized understanding of his discharge instructions. DISCHARGE MEDICATIONS: 1. Colace 100 mg orally twice daily 2. [place] 5/325, 1 tablet orally every 4 h as needed for pain (#20 tablets). DIAGNOSTIC DATA: 1. Chest x-ray. No acute cardiopulmonary findings. 2. CT scan of the abdomen and pelvis. Appendicitis. Laparoscopic appendectomy. 3. CBC: WBC is 14.2, hemoglobin 17.4, hematocrit 48.9, platelet count 450,000. 4. Latest BMP: Sodium 139, potassium 3.6, chloride 101, carbon dioxide 27, anion gap 15, BUN 10, creatinine 0.7. Serum glucose 147, calcium 10.1. AST 24 , ALT 35, and alkaline phosphatase 128. At this time I would like to thank Dr. Sorenson, for seeing the patient, doing the necessary procedures, and providing clinical recommendations. He had discharge orders on 12/02/2016. However, because of unclear reasons the patient was not discharged. The patient's condition remains stable and the patient will be discharged home today. The case and management of this patient was fully discussed with Dr. Kenney. Home Meds Active Scripts Docusate Sodium* (Colace*) 100 Mg Capsule, 100 MG PO BID, #20 CAP Prov:JACKIE DAUGHERTY NP 12/02/16 Hydrocodone Bit-Acetaminophen (Hydrocodone Bit-APAP) 5-325MG Tablet, 1 TAB PO Q4H Y for PAIN LEVEL 4-7, #20 TAB Prov:JACKIE DAUGHERTY NP 12/02/16 Follow-up Plan Wander Sorenson MD Specialty: General Surgery Office Address [address] [place] [address] [address] [place] [address] Office Primary Care Provider Care Physician No Primary Time spent on discharge: > 30 minutes Pending Labs Laboratory Tests Test 12/03/16 04:21 White Blood Count 14.210^3/ul (4.8-10.8) Red Blood Count 4.9810^6/ul (4.70-6.10) Hemoglobin 14.6g/dl (14.0-18.0) Hematocrit 42.7% (42.0-52.0) Mean Corpuscular Volume 85.7fl (82.0-101.0) Mean Corpuscular Hemoglobin 29.3pg (29.0-33.0) Mean Corpuscular Hemoglobin Concent 34.2g/dl (32.0-37.0) Red Cell Distribution Width 12.2% (11.5-14.5) Platelet Count 38998^3/UL (140-415) Mean Platelet Volume 9.7fl (7.4-10.4) Neutrophils % 79.9% (39.0-77.0) Lymphocytes % 11.3% (15.0-51.0) Monocytes % 8.0% (0.0-11.0) Eosinophils % 0.1% (0.0-7.0) Basophils % 0.1% (0.0-2.0) Nucleated Red Blood Cells % 0.0/100WBC (0.0-0.0) Neutrophils # 11.410^3/ul (1.6-7.5) Lymphocytes # 1.610^3/ul (0.8-2.9) Monocytes # 1.110^3/ul (0.3-0.9) Eosinophils # 0.010^3/ul (0.0-0.5) Basophils # 0.010^3/ul (0.0-0.1) Nucleated Red Blood Cells # 0.010^3/ul (0.0-0.0) Sodium Level 138mmol/L (135-144) Potassium Level 3.8mmol/L (3.5-5.1) Chloride Level 101mmol/L (97-110) Carbon Dioxide Level 29mmol/L (21-31) Anion Gap 12 (8-16) Blood Urea Nitrogen 8mg/dl (7-20) Creatinine 0.66mg/dl (0.61-1.24) Glucose Level 96mg/dl (70-220) Hemoglobin A1c 5.1% (0-5.9) Calcium Level 9.5mg/dl (8.4-10.2) Total Bilirubin 0.5mg/dl (0.2-1.3) Direct Bilirubin 0.00mg/dl (0.00-0.20) Indirect Bilirubin 0.5mg/dl (0-1.1) Aspartate Amino Transf (AST/SGOT) 25IU/L (15-46) Alanine Aminotransferase (ALT/SGPT) 23IU/L (13-69) Alkaline Phosphatase 76IU/L (42-121) Total Protein 6.4g/dl (6.1-8.1) Albumin 3.6g/dl (3.3-4.9) Globulin 2.80g/dl (1.3-3.2) Albumin/Globulin Ratio 1.28 Triglycerides Level 76mg/dl (0-149) Cholesterol Level 144mg/dl (100-200) LDL Cholesterol, Calculated 85mg/dl HDL Cholesterol 44mg/dl (30-63) Cholesterol/HDL Ratio 3.2RATIO Thyroid Stimulating Hormone (TSH) 1.240MIU/L (0.465-4.680) JACKIE DAUGHERTY NP Dec 03, 2016 10:11 JACKIE DAUGHERTY NP Dec 03, 2016 10:11
[2016-12-03 14:00] VITALS: BP 123/82; PULSE 78; RESP 18
--- NOTE | 2016-12-03 14:37 | PN ---
Date/Time of Note Date/Time of Note DATE: 12/03/16 TIME: 14:37 Assessment/Plan Lines/Catheters IV Catheter Type (from Nrs): [place] in Place (from Nrs): No Assessment/Plan Assessment/Plan [facility] Progress Note Date of Service: 12/03/2016 Place of service: [facility] 12/03/2016 Today's Assessment & Plan: Overall stable and doing well with minor complaints of distention and abdominal pain which is expected given recent operation. Abdomen otherwise remains benign. No indication for acute surgical intervention. Awaiting further return of bowel function. With above assessment, I've recommended the following for today: 1. Keep in-house 2. Increase activity 3. Increase incentive spirometry 4. Continue regular diet 5. Discharge planning for tomorrow a.m. Thank you again for your great care of this very pleasant patient and wonderful family. If there are any questions, please feel free to call me at [phone]. Nature of presenting problem: Moderate severity Please note that, given the limited number of diagnoses or management options, the moderate amount and/or complexity of data needed to be reviewed, and moderate risk of complications and/or morbidity or mortality, this qualifies as moderate complexity type of decision-making. Disclaimers: 1. Inadvertent spelling and grammatical errors are likely due to electronic health record (EHR)/dictation software use and do not reflect on the quality of delivered patient care. 2. The electronic timestamp recorded on this note does not necessarily reflect the actual date and time of the visit. 3. Portions of this note are created through electronic templates and computer algorithms that may bring in information either from the system or from other physicians and providers that are outside of my control and may not be always accurate. In general (but not always) this happens either in the beginning or at the end of the note. My portions of the gathered data are generally dictated in 1 continuous block of text and entered into one field in the EHR. 4. There may be other unanticipated errors in the note that are outside of my control. I can only attest to the portions of the note that I have created. Updated clinical summary: Very pleasant and otherwise healthy 26-year-old gentleman, presenting with acute appendicitis to [facility] through the emergency department on 12/02/2016. Comorbidities: None Subjective: No major events or complaints; mild to moderate abd pain and under semi- adequate control with medications; no n/v/d; no sob or cp; - flatus; - BM; - activity Objective: Vitals: See below I's & O's: See below Exam: GENERAL: On exam, the patient was lying in bed and appeared to be comfortable and in no acute distress. ABDOMEN: Soft, nontender and nondistended. Incision dressings are clean, dry and intact without any evidence of obvious underlying erythema, edema, discharge , or hernia. There are no peritoneal signs or guarding. SKIN: Skin appears to be pink and feels warm to touch. NEUROLOGIC: Patient is awake, alert, and follows commands appropriately. Labs: See below Exam/Review of Systems Vital Signs Vitals Vital Signs Date Time Temp Pulse Resp B/P Pulse Ox O2 Delivery O2 Flow Rate FiO2 12/03/16 08:16 98.4 78 20 132/80 99 12/03/16 04:01 Room Air Intake and Output 12/02/16 12/02/16 12/03/16 15:00 23:00 07:00 Intake Total 1360 ml 120 ml 1560 ml Output Total 5 ml 650 ml 2000 ml Balance 1355 ml -530 ml -440 ml Results Result Diagram: 12/03/16 0421 12/03/16 0421 MATTY MEJIAS M.D. Dec 03, 2016 14:37
[2016-12-03 16:12] VITALS: BP 123/82; RESP 20
[2016-12-03 21:00] VITALS: BP 120/77; PULSE 79; RESP 18
[2016-12-05] MEDS ORDERED: INFLUENZA VIRUS VACCINE 0.5 ML SYG IM* ONE (09:00)
== END 2016-12-03 21:15 | disposition home or self-care (01) | DRG 343 ==
LOC: FTE 23:59 → MS1 12-02 01:56
PROVIDERS: ADMIT Family Medicine; ATTEND Family Medicine
PROC: 0DTJ4ZZ Resection of Appendix, Percutaneous Endoscopic Approach (ICD-10-PCS; principal; 2016-12-02 13:30)
DX: K35.80 Unspecified acute appendicitis (principal); Z72.0 Tobacco use
CPT/HCPCS: 36415; 71010; 74176; 80053; 80061; 81001; 83036; 83690; 84443; 85025; 85610; 85730; 88304; 93005; 96374; 96375; J1100; J1170; J1650; J2250; J2270; J2405; J2543; J3010; J7030

== ENCOUNTER → 2016-12-21 | Outpatient (CLI) | payer SELFPAY ==
[~2016-12-21] VITALS: Ht 165.1 cm; Wt 50.5 kg
[~2016-12-21] MED LIST: DOCU-144 PO; HYDR-3498 PO
[2016-12-21 15:01] VITALS: BP 128/69; PULSE 95; RESP 18; Ht 165.1 cm; Wt 50.5 kg
--- NOTE | 2016-12-21 16:42 | PN ---
Date/Time of Note Date/Time of Note DATE: 12/21/16 TIME: 16:37 Assessment/Plan Assessment/Plan Assessment/Plan [facility] Progress Note Date of Service: 12/21/2016 Place of service: [facility] Today's Assessment & Plan: Overall stable and doing well with minor complaints of abdominal pain in the LLQ 5 mm port site. No infection or hernia. Likely temporary. Abdomen otherwise remains benign. No indication for acute surgical intervention. No obvious evidence for major postoperative complications or wound problems. With above assessment, I've recommended the following for today: 1. Follow-up with PCP 2. Follow-up with us as needed Thank you again for your great care of this very pleasant patient and wonderful family. If there are any questions, please feel free to call me at [phone]. Nature of presenting problem: Moderate severity Please note that, given the limited number of diagnoses or management options, the moderate amount and/or complexity of data needed to be reviewed, and moderate risk of complications and/or morbidity or mortality, this qualifies as moderate complexity type of decision-making. Disclaimers: 1. Inadvertent spelling and grammatical errors are likely due to electronic health record (EHR)/dictation software use and do not reflect on the quality of delivered patient care. 2. The electronic timestamp recorded on this note does not necessarily reflect the actual date and time of the visit. 3. Portions of this note are created through electronic templates and computer algorithms that may bring in information either from the system or from other physicians and providers that are outside of my control and may not be always accurate. In general (but not always) this happens either in the beginning or at the end of the note. My portions of the gathered data are generally dictated in 1 continuous block of text and entered into one field in the EHR. 4. There may be other unanticipated errors in the note that are outside of my control. I can only attest to the portions of the note that I have created. Updated clinical summary: Very pleasant and otherwise healthy 26-year-old gentleman, presenting with acute appendicitis to [facility] through the emergency department on 12/02/2016. Status post laparoscopic appendectomy on 12/02/2016 with final pathology results consistent with acute appendicitis. Comorbidities: 1. Status post laparoscopic appendectomy at [facility] on 12/02/2016 with final pathology results consistent with acute appendicitis. Subjective: No major events or complaints since d/c home; mild abd discomfort at LLQ 5-mm port site; not taking pain medications; no n/v/d; no sob or cp; + flatus; + BM; + activity Objective: Vitals: See below Exam: GENERAL: On exam, the patient was lying in bed and appeared to be comfortable and in no acute distress. ABDOMEN: Soft, nontender and nondistended. Incisions are clean, dry and intact without any evidence of obvious erythema, edema, discharge, or hernia. There are no peritoneal signs or guarding. SKIN: Skin appears to be pink and feels warm to touch. NEUROLOGIC: Patient is awake, alert, and follows commands appropriately. Exam/Review of Systems Vital Signs Vitals Vital Signs Date Time Temp Pulse Resp B/P Pulse Ox O2 Delivery O2 Flow Rate FiO2 12/21/16 15:01 98.8 95 18 128/69 98 Room Air MATTY MEJIAS M.D. Dec 21, 2016 16:42
== END | disposition home or self-care (01) ==
LOC: HPC 14:58
PROVIDERS: ATTEND Transplant Surgery
DX: R10.32 Left lower quadrant pain (principal)